=== PATIENT | female | born 1995 | race American Indian/Alaskan Native ===

== ENCOUNTER 2017-03-06 10:07 | Emergency (ER) | payer MEDICAID ==
[2017-03-06 10:17] VITALS: BP 124/63
--- NOTE | 2017-03-06 11:57 | Emergency Department Report ---
Eye Injury/Foreign Body - HPI Duration: 2 months Eye Location: Right Severity: Mild Eye Symptoms: Eye Pain: No, Blurred Vision: No, Eye Redness: No, Grinding/ Hammering Metal: No, Used Eye Protection: No, Contact Lens Use: No, Recalls Injury: No, Photophobia: No Other History: 21-year-old female past medical history none presents with complaint of 2 months of a growth to her right upper eyelid. States that it is painless. Denies any blurry vision. Denies any headache. Denies any sinus congestion. Denies any floaters. States that it is slightly uncomfortable and drain slightly about 4 days ago. Denies any other symptoms. 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 ED Review of Systems ROS: Stated complaint: STYE ON RIGHT EYE Other details as noted in HPI Constitutional: denies: chills, fever Eyes: other (lesion on the upper eyelid). denies: eye pain, eye discharge, vision change ENT: denies: ear pain, throat pain Respiratory: denies: cough, shortness of breath, wheezing Cardiovascular: denies: chest pain, palpitations Endocrine: no symptoms reported Gastrointestinal: denies: abdominal pain, nausea, diarrhea Genitourinary: denies: urgency, dysuria, discharge Musculoskeletal: denies: back pain, joint swelling, arthralgia Skin: denies: rash, lesions Neurological: denies: headache, weakness, paresthesias Psychiatric: denies: anxiety, depression Hematological/Lymphatic: denies: easy bleeding, easy bruising ED Past Medical Hx - Past Medical History Previous Medical History?: No - Surgical History Past Surgical History?: No - Social History Smoking Status: Never Smoker Substance Use Type: None - Medications Home Medications: Home Medications Medication Instructions Recorded Confirmed Last Taken Type Erythromycin [Erythromycin Ophth 1 applic OP BID #1 tube 03/06/17 Unknown Rx Oint] Ibuprofen [Motrin] 600 mg PO Q8H PRN #20 tablet 03/06/17 Unknown Rx Eye Injury Exam - Exam General: Vital signs noted. No distress. Alert and acting appropriately. - Visual Acuity Right Vision Acuity Degree: 20/20 Eye Exam: Right Eye Foreign Body (Chalazion on noninfected right upper eyelid) ED Course Vital Signs 03/06/17 10:14 Temperature 98.2 F Pulse Rate 77 Respiratory 17 Rate Blood Pressure 124/63 O2 Sat by Pulse 100 Oximetry ED Medical Decision Making - Medical Decision Making A/P: Chalazion on the right upper eyelid 1-Motrin when necessary, erythromycin ointment, warm compresses 2-I referred patient to ophthalmology and educated her on the subject of chalazion. Patient's vision is 20/20 there are no signs of infection currently Critical care attestation.: If time is entered above; I have spent that time in minutes in the direct care of this critically ill patient, excluding procedure time. ED Disposition Clinical Impression: Chalazion of right eyelid Qualifiers: Eyelid: upper Qualified Code(s): H00.11 - Chalazion right upper eyelid Disposition: DC- TO HOME OR SELFCARE Is pt being admited?: No Does the pt Need Aspirin: No Condition: Stable Additional Instructions: [email or web address] Prescriptions: Erythromycin [Erythromycin Ophth Oint] 1 applic OP BID #1 tube Ibuprofen [Motrin] 600 mg PO Q8H PRN #20 tablet PRN Reason: Pain Referrals: JAMAAL THOMAS MD [Staff Physician] - 3-5 Days DILMA MCCALLUM MD [Staff Physician] - 3-5 Days Forms: Accompanied Note, Work/School Release Form(ED) Time of Disposition: 11:56
== END 2017-03-06 12:07 | disposition home or self-care (01) ==
LOC: ED 10:07
DX: H00.11 Chalazion right upper eyelid (principal)
CPT/HCPCS: 99282